=== PATIENT | female | born 1985 | race Caucasian/White ===

== ENCOUNTER 2021-01-20 15:10 | Emergency (ER) | payer OTHER, SELFPAY ==
[2021-01-20 15:22] VITALS: BP 148/101; PULSE 86; RESP 16; TEMP 36.9; O2SAT 100
--- NOTE | 2021-01-20 15:45 | ED.URI ---
HPI - URI/Sore Throat General Chief Complaint: Upper Respiratory Infection Stated Complaint: Cough/Congestion Source: patient Mode of arrival: ambulatory Limitations: no limitations History of Present Illness HPI Narrative: 35-year-old female presents to [facility] with complaints of cough, congestion, intermittent fevers and loss of taste for the past week. Patient reports that her grandmother recently tested positive for Covid. Patient is not Covid her influenza vaccine. Patient has been taking [id number] cold medications with minimal relief. Patient is a smoker. Patient denies recent travel. MD elicited complaint: cough, rhinorrhea and nasal congestion Onset (ago): week(s) (1) Able to tolerate fluids by mouth: Yes Relieving factors: nothing Context: sick contacts Related Data Allergies Allergy/AdvReac Type Severity Reaction Status Date / Time No Known Allergies Allergy Verified 01/20/21 15:33 Review of Systems Constitutional: Constitutional: Reports chills, Denies fatigue, Reports fever(s) and Denies weakness ENT: Denies dysphagia, Denies dizziness and Reports nasal congestion Respiratory: Respiratory: Denies chest congestion, Reports cough, Denies dyspnea and Denies wheezing Gastrointestinal: Gastrointestinal: Denies abdominal pain, Denies diarrhea, Denies nausea and Denies vomiting Integumentary/Breasts: Skin/Breast: Denies rash [facility] Past Medical History Medical History (Updated 01/20/21 @ 16:02 by Dionne Llamas APRN) Cholecystectomy planned Surgical History Surgical History (Updated 01/20/21 @ 15:47 by Dionne Llamas APRN) Previous section Social History Social History (Updated 01/20/21 @ 15:47 by Dionne Llamas APRN) Smoking status: Former smoker Comments At time of signature, I agree with nursing past medical, surgical, social and family history. There is no relevant family history pertinent to the presenting complaint. Exam Const: General: healthy appearing and no acute distress Orientation/consciousness: patient oriented x3 HENMT: Ears: external ears normal and TM's normal bilaterally General nose exam: Normal external nose present Face and sinus: normal facial exam Mouth: Yes moist mucous membranes Throat: uvula midline Other: Moderate nasal congestion noted Neck: Neck: normal visual inspection Resp: Effort & Inspection: normal respiratory effort, not labored and not tachypneic Auscultation: clear to auscultation bilaterally Cardio: Rate: regular rate, not bradycardic and not tachycardic Rhythm: regular rhythm and regular rhythm Skin: General skin exam: normal color, no jaundice and no pallor Rashes: no rashes Neuro: General: patient oriented x3, moves all extremities and No no meningeal signs Extrem: General: normal to inspection Psych: Appearance: grossly normal Mental Status: mental status grossly normal Affect: normal affect Attitude: cooperative Course Vital Signs Vital signs: Vital Signs Temperature 36.9 C 01/20/21 15:22 Pulse Rate 86 01/20/21 15:22 Respiratory Rate 16 01/20/21 15:22 Blood Pressure 148/101 H 01/20/21 15:22 Pulse Oximetry 100 01/20/21 15:22 Temperature 36.9 C 01/20/21 15:22 Pulse Rate 86 01/20/21 15:22 Respiratory Rate 16 01/20/21 15:22 Blood Pressure 148/101 H 01/20/21 15:22 Pulse Oximetry 100 01/20/21 15:22 MDM - URI/Sore Throat Differential Diagnosis Differential diagnosis: Likely otitis media, sinusitis and viral infection Lab Data Labs: (-) COVID and (-) influenza Critical Care Time Critical Care Time Critical Care Time: No Discharge Plan Discharge Clinical Impression: Upper respiratory infection Qualifiers: URI type: unspecified viral URI Qualified Code(s): J06.9 - Acute upper respiratory infection, unspecified Patient Disposition: Home, Self-Care Condition: Stable Instructions: Upper Respiratory Infection (ED) Additional Instructions: Rest increas
== END 2021-01-20 16:05 | disposition home or self-care (01) ==
PROVIDERS: Emergency Provider Nurse Practitioner Family
DX: J06.9 Acute upper respiratory infection, unspecified (principal); Z20.822 Contact with and (suspected) exposure to COVID-19; Z87.891 Personal history of nicotine dependence; I10 Essential (primary) hypertension
CPT/HCPCS: 87426; 87804; 99203; C9803; G0463